=== PATIENT | male | born 1955 | race Asian ===

== ENCOUNTER 2017-04-21 23:21 | Inpatient (IN) | payer MEDICAID, BC ==
[2017-04-22] MEDS: SOD CHLORIDE 0.9% 500 ML IV (00:06)
[2017-04-22 00:34] LABS: ABNORMAL IP MESSAGE 1; HEMATOCRIT 35.9 % (42.0-52.0); HEMOGLOBIN 11.6 g/dl (14.0-18.0); MEAN CORPUSCULAR HEMOGLOBIN 27.8 pg (29.0-33.0); MEAN CORPUSCULAR HGB CONC 32.3 g/dl (32.0-37.0); MEAN CORPUSCULAR VOLUME 85.9 fl (82.0-101.0); MEAN PLATELET VOLUME 11.7 fl (7.4-10.4); PLATELET COUNT 129 10^3/UL (140-415); POSITIVE DIFF @See below; RED BLOOD COUNT 4.18 10^6/ul (4.70-6.10); RED CELL DISTRIBUTION WIDTH 14.6 % (11.5-14.5)
[2017-04-22 00:34] LABS: WHITE BLOOD COUNT 21.1 10^3/ul (4.8-10.8)
[2017-04-22 00:47] LABS: ADD MAN DIFF? YES
[2017-04-22 00:59] LABS: ALANINE AMINOTRANSFERASE 34 IU/L (13-69); ALBUMIN 2.8 g/dl (3.3-4.9); ALBUMIN/GLOBULIN RATIO 0.84; ALKALINE PHOSPHATASE 124 IU/L (42-121); ANION GAP 17 (8-16); ASPARTATE AMINO TRANSFERASE 41 IU/L (15-46); BILIRUBIN,INDIRECT 0.4 mg/dl (0-1.1); BILIRUBIN,TOTAL 0.4 mg/dl (0.2-1.3); BLOOD UREA NITROGEN 40 mg/dl (7-20); CALCIUM 8.2 mg/dl (8.4-10.2); CARBON DIOXIDE 32 mmol/L (21-31); CHLORIDE 96 mmol/L (97-110); CREATININE 2.01 mg/dl (0.61-1.24); GLUCOSE 93 mg/dl (70-220); POTASSIUM 3.1 mmol/L (3.5-5.1); SODIUM 142 mmol/L (135-144); TOTAL PROTEIN 6.1 g/dl (6.1-8.1)
[2017-04-22 01:10] LABS: TROPONIN-I 0.076 ng/ml (0.00-0.12)
[2017-04-22 01:26] LABS: B-TYPE NATRIURETIC PEPTIDE 47900 PG/ML (0-125)
[2017-04-22 01:38] LABS: BAND NEUTROPHILS #M 8.2 10^3/ul (0.0-0.6); BAND NEUTROPHILS % (M) 39 % (0-4); LYMPHOCYTES # 0.8 10^3/ul (0.8-2.9); LYMPHOCYTES #M 0.8 10^3/ul (0.8-2.9); LYMPHOCYTES % (M) 4 % (15-51); MONOCYTE # 1.5 10^3/ul (0.3-0.9); MONOCYTE #M 1.4 10^3/ul (0.3-0.9); MONOCYTES % (M) 7 % (0-11); SEG NEUT #M 12.3 10^3/ul (1.7-7.5); SEGMENTED NEUTROPHILS (M) % 50 % (39-77)
[2017-04-22 01:39] LABS: ANISOCYTOSIS 1+ (0-0); BURR CELLS 1+; OVALOCYTES 1+ (0-0)
[2017-04-22 01:44] LABS: PT RATIO 4.1
[2017-04-22] MEDS: morphine 4 MG/ML VIAL IV (01:57)
[2017-04-22 02:28] LABS: PARTIAL THROMBOPLASTIN TIME 73.5 Sec (25.0-35.0)
[2017-04-22] MEDS: SODIUM CHLORIDE 0.9% 1L BAG IV* (02:31)
[2017-04-22] MEDS: CEFEPIME 2GM/50 ML (PMX) 50 ML IVPB (02:42)
[2017-04-22] MEDS: VANCOMYCIN 1 GM (PMX) 250 ML IVPB (02:43)
[2017-04-22] MEDS ORDERED: NACL 0.9% 3 ML SYG IV (03:00)
[2017-04-22] MEDS ORDERED: NITROGLYCERIN (SL) 0.4 MG TAB SL (03:00)
[2017-04-22] MEDS ORDERED: ONDANSETRON 4 MG INJ IV (03:00)
[2017-04-22] MEDS ORDERED: ALBUTEROL/IPRATROPIUM (NEB) 3 ML AMP HHN (03:00)
[2017-04-22 03:23] LABS: INR 4.76; PROTIME 46.3 Sec (11.9-14.9); PT RATIO 3.6
[2017-04-22 03:24] LABS: PARTIAL THROMBOPLASTIN TIME 57.2 Sec (25.0-35.0)
[2017-04-22 03:26] LABS: LACTIC ACID 1.5 mmol/L (0.5-2.0)
[2017-04-22] MEDS: traMADol 50 MG TAB PO ×2 (03:58→19:29)
[2017-04-22 05:09] LABS: CREATINE KINASE 69 IU/L (23-200)
[2017-04-22 05:23] LABS: CK INDEX 2.9; TROPONIN-I 0.061 ng/ml (0.00-0.12)
[2017-04-22] MEDS: IBUPROFEN 600 MG TAB PO (06:02)
[2017-04-22 06:57] LABS: LACTIC ACID 2.3 mmol/L (0.5-2.0)
[2017-04-22] MEDS ORDERED: FUROSEMIDE 40 MG INJ IV ×2 (09:00)
[2017-04-22] MEDS ORDERED: FUROSEMIDE 40 MG TAB PO (09:00)
[2017-04-22] MEDS: FUROSEMIDE 40 MG INJ IV (09:07)
[2017-04-22] MEDS: LEVOFLOXACIN 500MG/D5W (PMX) 100 ML IVPB (09:07)
[2017-04-22] MEDS: ASPIRIN 81 MG TAB PO (09:08)
[2017-04-22 09:33] LABS: CREATINE KINASE 58 IU/L (23-200)
[2017-04-22 09:45] LABS: CK INDEX 3.3; TROPONIN-I 0.041 ng/ml (0.00-0.12)
[2017-04-22 09:48] LABS: CK-MB 1.92 ng/ml (0.0-2.4)
[2017-04-22] MEDS: morphine 2 MG INJ IV (11:34)
[2017-04-22] MEDS: RIVAROXABAN 20 MG TABLET PO (17:35)
[2017-04-22 19:59] LABS: TYPE AND SCREEN 1 1
[2017-04-23] MEDS: traMADol 50 MG TAB PO (03:03)
[2017-04-23] MEDS: predniSONE 20 MG TAB PO (03:55)
[2017-04-23] MEDS ORDERED: VANCOMYCIN IV PER PHARMACY XX (04:30)
[2017-04-23 05:10] LABS: WHITE BLOOD COUNT 18.3 10^3/ul (4.8-10.8)
[2017-04-23 05:10] LABS: ABNORMAL IP MESSAGE 1; HEMATOCRIT 35.4 % (42.0-52.0); HEMOGLOBIN 11.6 g/dl (14.0-18.0); MEAN CORPUSCULAR HEMOGLOBIN 27.5 pg (29.0-33.0); MEAN CORPUSCULAR HGB CONC 32.8 g/dl (32.0-37.0); MEAN CORPUSCULAR VOLUME 83.9 fl (82.0-101.0); MEAN PLATELET VOLUME 11.8 fl (7.4-10.4); PLATELET COUNT 98 10^3/UL (140-415); POSITIVE DIFF @See below; RED BLOOD COUNT 4.22 10^6/ul (4.70-6.10); RED CELL DISTRIBUTION WIDTH 14.6 % (11.5-14.5)
[2017-04-23 05:31] LABS: ADD MAN DIFF? YES; ALANINE AMINOTRANSFERASE 37 IU/L (13-69); ALBUMIN 2.7 g/dl (3.3-4.9); ALBUMIN/GLOBULIN RATIO 0.79; ALKALINE PHOSPHATASE 158 IU/L (42-121); ANION GAP 18 (8-16); ASPARTATE AMINO TRANSFERASE 34 IU/L (15-46); BILIRUBIN,INDIRECT 0.4 mg/dl (0-1.1); BILIRUBIN,TOTAL 0.6 mg/dl (0.2-1.3); BLOOD UREA NITROGEN 52 mg/dl (7-20); CALCIUM 8.1 mg/dl (8.4-10.2); CARBON DIOXIDE 26 mmol/L (21-31); CHLORIDE 95 mmol/L (97-110); CREATININE 1.93 mg/dl (0.61-1.24); GLUCOSE 117 mg/dl (70-220); MAGNESIUM 1.7 mg/dl (1.7-2.5); SODIUM 136 mmol/L (135-144); TOTAL PROTEIN 6.1 g/dl (6.1-8.1)
[2017-04-23 05:32] LABS: INR 2.38; PROTIME 26.6 Sec (11.9-14.9); PT RATIO 2.1
[2017-04-23 05:33] LABS: PARTIAL THROMBOPLASTIN TIME 54.4 Sec (25.0-35.0)
[2017-04-23] MEDS: VANCOMYCIN 750 MG in DEXTROSE 5% 150 ML IVPB (05:40)
[2017-04-23 07:48] LABS: ANISOCYTOSIS 1+ (0-0); BAND NEUTROPHILS #M 6.4 10^3/ul (0.0-0.6); BAND NEUTROPHILS % (M) 35 % (0-4); BURR CELLS 2+ (0-0); HYPOCHROMASIA 1+ (0-0); LYMPHOCYTES #M 0.3 10^3/ul (0.8-2.9); LYMPHOCYTES % (M) 2 % (15-51); MONOCYTE #M 0.5 10^3/ul (0.3-0.9); MONOCYTES % (M) 3 % (0-11); PLATELET ESTIMATE DECREASED; PLATELET MORPHOLOGY COMMENT @See below; POIKILOCYTOSIS 2+ (0-0); POLYCHROMASIA 1+ (0-0); SEG NEUT #M 12.2 10^3/ul (1.7-7.5); SEGMENTED NEUTROPHILS (M) % 60 % (39-77)
[2017-04-23] MEDS: ASPIRIN 81 MG TAB PO (09:48)
[2017-04-23] MEDS: FUROSEMIDE 40 MG INJ IV (09:49)
[2017-04-23 14:45] LABS: URIC ACID 12.9 mg/dl (3.1-7.9)
[2017-04-23] MEDS: POTASSIUM CHLORIDE (SR) 20 MEQ TAB PO (15:55)
[2017-04-23] MEDS: INDOMETHACIN 25 MG PO ×2 (17:35→21:17)
[2017-04-23] MEDS: COLCHICINE 0.6 MG TAB PO (17:35)
[2017-04-24] MEDS: VANCOMYCIN 750 MG in DEXTROSE 5% 150 ML IVPB (05:56)
[2017-04-24 06:05] LABS: WHITE BLOOD COUNT 25.1 10^3/ul (4.8-10.8)
[2017-04-24 06:05] LABS: ABNORMAL IP MESSAGE 1; HEMOGLOBIN 11.2 g/dl (14.0-18.0); MEAN PLATELET VOLUME 12.3 fl (7.4-10.4); PLATELET COUNT 103 10^3/UL (140-415); POSITIVE DIFF @See below; RED CELL DISTRIBUTION WIDTH 14.6 % (11.5-14.5)
[2017-04-24 06:13] LABS: ADD MAN DIFF? YES
[2017-04-24 06:50] LABS: ANION GAP 17 (8-16); BLOOD UREA NITROGEN 62 mg/dl (7-20); CALCIUM 8.6 mg/dl (8.4-10.2); CARBON DIOXIDE 26 mmol/L (21-31); CHLORIDE 96 mmol/L (97-110); CREATININE 1.93 mg/dl (0.61-1.24); GLUCOSE 125 mg/dl (70-220); POTASSIUM 3.7 mmol/L (3.5-5.1); SODIUM 135 mmol/L (135-144)
[2017-04-24 06:56] LABS: ANISOCYTOSIS 2+ (0-0); BAND NEUTROPHILS #M 4.7 10^3/ul (0.0-0.6); BAND NEUTROPHILS % (M) 19 % (0-4); LYMPHOCYTES #M 0.5 10^3/ul (0.8-2.9); LYMPHOCYTES % (M) 2 % (15-51); METAMYELOCYTES #M 0.2 10^3/ul (0.0-0.0); METAMYELOCYTES %M 1 % (0-0); MONOCYTES % (M) 4 % (0-11); PLATELET ESTIMATE DECREASED; POIKILOCYTOSIS 2+ (0-0); POLYCHROMASIA 3+ (0-0); REACTIVE LYMPHOCYTES #M 0.2 10^3/ul (0.0-0.0); REACTIVE LYMPHOCYTES% (M) 1 % (0-0); SEG NEUT #M 19.5 10^3/ul (1.7-7.5); SEGMENTED NEUTROPHILS (M) % 73 % (39-77); TARGET CELLS 1+ (0-0)
[2017-04-24] MEDS: ASPIRIN 81 MG TAB PO (08:28)
[2017-04-24] MEDS: INDOMETHACIN 25 MG PO (08:28)
[2017-04-24] MEDS: LEVOFLOXACIN 500MG/D5W (PMX) 100 ML IVPB (08:29)
[2017-04-24] MEDS: FUROSEMIDE 40 MG INJ IV (08:29)
[2017-04-24] MEDS: predniSONE 20 MG TAB PO (20:58)
[2017-04-24] MEDS: traMADol 50 MG TAB PO (20:58)
[2017-04-24] MEDS ORDERED: INDOMETHACIN 25 MG PO (21:00)
[2017-04-25] MEDS: VANCOMYCIN 750 MG in DEXTROSE 5% 150 ML IVPB (05:39)
[2017-04-25 06:00] LABS: ADD MAN DIFF? NO
[2017-04-25 06:18] LABS: ABNORMAL IP MESSAGE 1; BASOPHILS % 0.2 % (0.0-2.0); HEMATOCRIT 33.1 % (42.0-52.0); HEMOGLOBIN 11.1 g/dl (14.0-18.0); LYMPHOCYTES # 0.5 10^3/ul (0.8-2.9); LYMPHOCYTES % 2.2 % (15.0-51.0); MEAN CORPUSCULAR HEMOGLOBIN 27.8 pg (29.0-33.0); MEAN CORPUSCULAR HGB CONC 33.5 g/dl (32.0-37.0); MEAN CORPUSCULAR VOLUME 82.8 fl (82.0-101.0); MEAN PLATELET VOLUME 12.4 fl (7.4-10.4); MONOCYTE # 0.6 10^3/ul (0.3-0.9); MONOCYTES % 2.8 % (0.0-11.0); NEUTROPHIL # 20.1 10^3/ul (1.6-7.5); POSITIVE DIFF @See below; RED CELL DISTRIBUTION WIDTH 14.7 % (11.5-14.5)
[2017-04-25 06:18] LABS: WHITE BLOOD COUNT 21.6 10^3/ul (4.8-10.8)
[2017-04-25 06:22] LABS: PLATELET COUNT 97 10^3/UL (140-415)
[2017-04-25 06:35] LABS: ANION GAP 15 (8-16); BLOOD UREA NITROGEN 55 mg/dl (7-20); CALCIUM 8.3 mg/dl (8.4-10.2); CARBON DIOXIDE 28 mmol/L (21-31); CHLORIDE 98 mmol/L (97-110); CREATININE 1.68 mg/dl (0.61-1.24); GLUCOSE 116 mg/dl (70-220); POTASSIUM 3.4 mmol/L (3.5-5.1); SODIUM 138 mmol/L (135-144)
[2017-04-25] MEDS: FUROSEMIDE 40 MG INJ IV ×2 (09:58→20:46)
[2017-04-25] MEDS: ASPIRIN 81 MG TAB PO (09:58)
[2017-04-25] MEDS: POTASSIUM CHLORIDE (SR) 20 MEQ TAB PO (13:32)
[2017-04-26] MEDS: morphine 2 MG INJ IV (00:42)
[2017-04-26] MEDS: VANCOMYCIN 750 MG in DEXTROSE 5% 150 ML IVPB (05:28)
[2017-04-26] MEDS: ASPIRIN 81 MG TAB PO (07:53)
[2017-04-26] MEDS: LEVOFLOXACIN 500MG/D5W (PMX) 100 ML IVPB (07:54)
[2017-04-26] MEDS: FUROSEMIDE 40 MG INJ IV (07:54)
[2017-04-26] MEDS: traMADol 50 MG TAB PO ×2 (07:54→13:56)
[2017-04-26 14:16] LABS: ADD MAN DIFF? NO
[2017-04-26 14:21] LABS: WHITE BLOOD COUNT 16.8 10^3/ul (4.8-10.8)
[2017-04-26 14:21] LABS: BASOPHILS % 0.2 % (0.0-2.0); EOSINOPHILS % 0.2 % (0.0-7.0); HEMATOCRIT 32.8 % (42.0-52.0); HEMOGLOBIN 10.8 g/dl (14.0-18.0); LYMPHOCYTES # 0.8 10^3/ul (0.8-2.9); LYMPHOCYTES % 4.7 % (15.0-51.0); MEAN CORPUSCULAR HEMOGLOBIN 27.3 pg (29.0-33.0); MEAN CORPUSCULAR HGB CONC 32.9 g/dl (32.0-37.0); MEAN PLATELET VOLUME 12.2 fl (7.4-10.4); MONOCYTE # 0.8 10^3/ul (0.3-0.9); MONOCYTES % 4.8 % (0.0-11.0); NEUTROPHILS % 89.3 % (39.0-77.0); PLATELET COUNT 141 10^3/UL (140-415); RED BLOOD COUNT 3.95 10^6/ul (4.70-6.10); RED CELL DISTRIBUTION WIDTH 14.9 % (11.5-14.5)
[2017-04-26 14:36] LABS: PROTIME 15.4 Sec (11.9-14.9); PT RATIO 1.2
[2017-04-26 14:41] LABS: ANION GAP 13 (8-16)
[2017-04-26 14:51] LABS: BLOOD UREA NITROGEN 56 mg/dl (7-20); CALCIUM 8.4 mg/dl (8.4-10.2); CARBON DIOXIDE 29 mmol/L (21-31); CHLORIDE 94 mmol/L (97-110); CREATININE 1.42 mg/dl (0.61-1.24); GLUCOSE 143 mg/dl (70-220); POTASSIUM 3.3 mmol/L (3.5-5.1); SODIUM 133 mmol/L (135-144)
[2017-04-26] MEDS: COLCHICINE 0.6 MG TAB PO (15:09)
[2017-04-26] MEDS: predniSONE 20 MG TAB PO (15:09)
[2017-04-27] MEDS: FUROSEMIDE 40 MG TAB PO (06:33)
[2017-04-27 07:31] LABS: ADD MAN DIFF? NO
[2017-04-27 07:39] LABS: WHITE BLOOD COUNT 18.2 10^3/ul (4.8-10.8)
[2017-04-27 07:39] LABS: BASOPHILS % 0.2 % (0.0-2.0); HEMOGLOBIN 10.1 g/dl (14.0-18.0); LYMPHOCYTES # 0.8 10^3/ul (0.8-2.9); LYMPHOCYTES % 4.3 % (15.0-51.0); MEAN CORPUSCULAR HEMOGLOBIN 26.9 pg (29.0-33.0); MEAN CORPUSCULAR HGB CONC 32.6 g/dl (32.0-37.0); MEAN CORPUSCULAR VOLUME 82.7 fl (82.0-101.0); MEAN PLATELET VOLUME 11.7 fl (7.4-10.4); MONOCYTE # 0.8 10^3/ul (0.3-0.9); MONOCYTES % 4.4 % (0.0-11.0); NEUTROPHIL # 16.3 10^3/ul (1.6-7.5); NEUTROPHILS % 89.6 % (39.0-77.0); PLATELET COUNT 170 10^3/UL (140-415); RED BLOOD COUNT 3.75 10^6/ul (4.70-6.10); RED CELL DISTRIBUTION WIDTH 14.9 % (11.5-14.5)
[2017-04-27 07:50] LABS: ANION GAP 11 (8-16); BLOOD UREA NITROGEN 54 mg/dl (7-20); CALCIUM 8.6 mg/dl (8.4-10.2); CARBON DIOXIDE 33 mmol/L (21-31); CHLORIDE 97 mmol/L (97-110); CREATININE 1.42 mg/dl (0.61-1.24); GLUCOSE 115 mg/dl (70-220); POTASSIUM 3.5 mmol/L (3.5-5.1); SODIUM 137 mmol/L (135-144)
[2017-04-27] MEDS: ASPIRIN 81 MG TAB PO (09:31)
[2017-04-27] MEDS: predniSONE 20 MG TAB PO (09:31)
[2017-04-27] MEDS: COLCHICINE 0.6 MG TAB PO (09:32)
[2017-04-27] MEDS: ALLOPURINOL 100 MG TAB PO (15:42)
[2017-04-27] MEDS: SILDENAFIL 20 MG TAB PO (20:15)
[2017-04-28] MEDS: AL HYDROX/MG HYDROX/SIMETH 30 ML CUP PO (01:59)
[2017-04-28] MEDS: traMADol 50 MG TAB PO (04:17)
[2017-04-28] MEDS: FUROSEMIDE 40 MG TAB PO (06:03)
[2017-04-28] MEDS: ALLOPURINOL 100 MG TAB PO (08:17)
[2017-04-28] MEDS: COLCHICINE 0.6 MG TAB PO (08:17)
[2017-04-28] MEDS: predniSONE 20 MG TAB PO (08:17)
[2017-04-28] MEDS: SILDENAFIL 20 MG TAB PO ×3 (08:17→20:40)
[2017-04-28] MEDS: ASPIRIN 81 MG TAB PO (08:18)
[2017-04-28] MEDS ORDERED: VANCOMYCIN IV PER PHARMACY XX (09:30)
[2017-04-28] MEDS: VANCOMYCIN 1 GM 250 ML IVPB (12:07)
[2017-04-28] MEDS: VANCOMYCIN 500MG/NS (PMX) 100 ML IVPB (22:45)
[2017-04-29] MEDS: traMADol 50 MG TAB PO (02:05)
[2017-04-29] MEDS: FUROSEMIDE 40 MG TAB PO (02:58)
[2017-04-29] MEDS: predniSONE 20 MG TAB PO (08:53)
[2017-04-29] MEDS: ASPIRIN 81 MG TAB PO (08:53)
[2017-04-29] MEDS: ALLOPURINOL 100 MG TAB PO (08:53)
[2017-04-29] MEDS: SILDENAFIL 20 MG TAB PO ×3 (08:53→21:27)
[2017-04-29] MEDS: COLCHICINE 0.6 MG TAB PO (08:53)
[2017-04-29 09:28] LABS: CREATININE 1.37 mg/dl (0.61-1.24)
[2017-04-29 09:28] LABS: BLOOD UREA NITROGEN 53 mg/dl (7-20)
[2017-04-29] MEDS: VANCOMYCIN 500MG/NS (PMX) 100 ML IVPB ×2 (10:27→23:06)
[2017-04-29 17:23] LABS: ADD UMIC YES; UR ASCORBIC ACID NEGATIVE (NEGATIVE); UR BILIRUBIN (Dip) NEGATIVE (NEGATIVE); UR BLOOD (Dip) NEGATIVE (NEGATIVE); UR CLARITY CLEAR (CLEAR); UR COLOR YELLOW (YELLOW); UR GLUCOSE (Dip) 1+ mg/dL (NEGATIVE); UR KETONES (Dip) NEGATIVE (NEGATIVE); UR LEUKOCYTE ESTERASE (Dip) NEGATIVE Leu/ul (NEGATIVE); UR NITRITE (Dip) NEGATIVE (NEGATIVE); UR RBC 0 /HPF (0-5); UR SPECIFIC GRAVITY (Dip) 1.013 (1.003-1.030); UR TOTAL PROTEIN (Dip) 1+ mg/dl (NEGATIVE); UR UROBILINOGEN (Dip) NEGATIVE (NEGATIVE); UR WBC 0 /HPF (0-5)
[2017-04-29 17:38] LABS: SODIUM,URINE RANDOM 67 mmol/L (30-90)
[2017-04-29 17:38] LABS: CREATININE,URINE RANDOM 32.66 mg/dl (20-370)
[2017-04-29 22:50] LABS: VANCOMYCIN,TROUGH 14.9 ug/ml (10.0-20.0)
[2017-04-30] MEDS: traMADol 50 MG TAB PO (07:43)
[2017-04-30] MEDS: FUROSEMIDE 40 MG TAB PO (07:44)
[2017-04-30] MEDS: ASPIRIN 81 MG TAB PO (08:58)
[2017-04-30] MEDS: SILDENAFIL 20 MG TAB PO ×3 (08:58→20:56)
[2017-04-30] MEDS: ALLOPURINOL 100 MG TAB PO (08:59)
[2017-04-30] MEDS: COLCHICINE 0.6 MG TAB PO (08:59)
[2017-04-30] MEDS: predniSONE 20 MG TAB PO (10:28)
[2017-04-30] MEDS: VANCOMYCIN 500MG/NS (PMX) 100 ML IVPB ×2 (10:28→23:37)
[2017-04-30 10:39] LABS: ADD MAN DIFF? NO
[2017-04-30 10:43] LABS: ABNORMAL IP MESSAGE 1; BASOPHILS % 0.1 % (0.0-2.0); EOSINOPHILS % 0.1 % (0.0-7.0); HEMATOCRIT 24.9 % (42.0-52.0); LYMPHOCYTES % 6.6 % (15.0-51.0); MEAN CORPUSCULAR HEMOGLOBIN 27.3 pg (29.0-33.0); MEAN CORPUSCULAR HGB CONC 32.1 g/dl (32.0-37.0); MEAN PLATELET VOLUME 10.9 fl (7.4-10.4); MONOCYTE # 1.2 10^3/ul (0.3-0.9); MONOCYTES % 8.3 % (0.0-11.0); NEUTROPHIL # 11.7 10^3/ul (1.6-7.5); NEUTROPHILS % 79.3 % (39.0-77.0); PLATELET COUNT 250 10^3/UL (140-415); POSITIVE DIFF @See below; RED BLOOD COUNT 2.93 10^6/ul (4.70-6.10); RED CELL DISTRIBUTION WIDTH 15.5 % (11.5-14.5)
[2017-04-30 10:43] LABS: WHITE BLOOD COUNT 14.7 10^3/ul (4.8-10.8)
[2017-04-30 11:04] LABS: ANION GAP 11 (8-16); BLOOD UREA NITROGEN 50 mg/dl (7-20); CALCIUM 7.9 mg/dl (8.4-10.2); CARBON DIOXIDE 32 mmol/L (21-31); CHLORIDE 97 mmol/L (97-110); CREATININE 1.23 mg/dl (0.61-1.24); GLUCOSE 197 mg/dl (70-220); SODIUM 136 mmol/L (135-144)
[2017-04-30 14:17] LABS: CREATININE, RANDOM URINE 41 mg/dL (20-370); MICROALBUMIN 12.3 mg/dL; MICROALBUMIN/CREATININE RATIO 300 (<30)
[2017-05-01] MEDS: traMADol 50 MG TAB PO (03:27)
[2017-05-01] MEDS: FUROSEMIDE 40 MG TAB PO (07:12)
[2017-05-01 07:39] LABS: WHITE BLOOD COUNT 14.8 10^3/ul (4.8-10.8)
[2017-05-01 07:39] LABS: ABNORMAL IP MESSAGE 1; HEMATOCRIT 21.3 % (42.0-52.0); MEAN CORPUSCULAR HEMOGLOBIN 27.4 pg (29.0-33.0); MEAN CORPUSCULAR HGB CONC 32.4 g/dl (32.0-37.0); MEAN CORPUSCULAR VOLUME 84.5 fl (82.0-101.0); MEAN PLATELET VOLUME 10.4 fl (7.4-10.4); PLATELET COUNT 244 10^3/UL (140-415); POSITIVE DIFF @See below; RED BLOOD COUNT 2.52 10^6/ul (4.70-6.10); RED CELL DISTRIBUTION WIDTH 15.9 % (11.5-14.5)
[2017-05-01 07:50] LABS: ADD MAN DIFF? YES; HEMOGLOBIN 6.9 g/dl (14.0-18.0)
[2017-05-01] MEDS: predniSONE 20 MG TAB PO (08:18)
[2017-05-01] MEDS: ASPIRIN 81 MG TAB PO (08:18)
[2017-05-01] MEDS: ALLOPURINOL 100 MG TAB PO (08:18)
[2017-05-01] MEDS: SILDENAFIL 20 MG TAB PO ×3 (08:19→20:12)
[2017-05-01] MEDS: COLCHICINE 0.6 MG TAB PO (08:19)
[2017-05-01] MEDS: BALSAM PERU/CASTOR OIL 60 GM TUBE TOP (08:20)
[2017-05-01 08:32] LABS: ANION GAP 8 (8-16); BLOOD UREA NITROGEN 49 mg/dl (7-20); CALCIUM 8.2 mg/dl (8.4-10.2); CARBON DIOXIDE 32 mmol/L (21-31); CHLORIDE 100 mmol/L (97-110); CREATININE 1.23 mg/dl (0.61-1.24); GLUCOSE 152 mg/dl (70-220); POTASSIUM 4.1 mmol/L (3.5-5.1); SODIUM 136 mmol/L (135-144)
[2017-05-01] MEDS: ACETAMINOPHEN 325 MG TAB PO (09:08)
[2017-05-01 09:21] LABS: BAND NEUTROPHILS #M 0.7 10^3/ul (0.0-0.6); BAND NEUTROPHILS % (M) 5 % (0-4); HYPOCHROMASIA 2+ (0-0); LYMPHOCYTES #M 0.7 10^3/ul (0.8-2.9); LYMPHOCYTES % (M) 5 % (15-51); METAMYELOCYTES #M 0.1 10^3/ul (0.0-0.0); METAMYELOCYTES %M 1 % (0-0); MONOCYTE #M 1.4 10^3/ul (0.3-0.9); MONOCYTES % (M) 10 % (0-11); MYELOCYTES #M 0.1 10^3/ul (0.0-0.0); MYELOCYTES % (M) 1 % (0-0); PLATELET ESTIMATE NORMAL; POIKILOCYTOSIS 1+ (0-0); POLYCHROMASIA 1+ (0-0); REACTIVE LYMPHOCYTES #M 0.1 10^3/ul (0.0-0.0); REACTIVE LYMPHOCYTES% (M) 1 % (0-0); SEG NEUT #M 11.5 10^3/ul (1.7-7.5); SEGMENTED NEUTROPHILS (M) % 77 % (39-77); SMUDGE%M 1 % (0-0); TARGET CELLS 1+ (0-0)
[2017-05-01] MEDS ORDERED: BALSAM PERU/CASTOR OIL 60 GM TUBE TOP (09:30)
[2017-05-01] MEDS: SOD CHLORIDE 0.9% 250 ML IV* (09:56)
[2017-05-01] MEDS: VANCOMYCIN 500MG/NS (PMX) 100 ML IVPB (11:04)
[2017-05-01] MEDS: LISINOPRIL 5 MG TAB PO (11:06)
[2017-05-01 12:42] LABS: IMMEDIATE SPIN CROSSMATCH 1 2
[2017-05-01] MEDS: FUROSEMIDE 40 MG INJ IV ×2 (15:32→20:10)
[2017-05-01] MEDS: PANTOPRAZOLE 40 MG INJ IV (17:28)
[2017-05-01 20:52] LABS: HEMATOCRIT 28.6 % (42.0-52.0); HEMOGLOBIN 9.4 g/dl (14.0-18.0)
[2017-05-02] MEDS: traMADol 50 MG TAB PO ×2 (04:45→11:36)
[2017-05-02] MEDS: FUROSEMIDE 40 MG TAB PO (04:45)
[2017-05-02] MEDS: PANTOPRAZOLE 40 MG INJ IV ×2 (04:49→17:51)
[2017-05-02] MEDS: ACETAMINOPHEN 325 MG TAB PO (07:25)
[2017-05-02] MEDS: predniSONE 10 MG TAB PO (08:11)
[2017-05-02] MEDS: ALLOPURINOL 100 MG TAB PO (08:11)
[2017-05-02] MEDS: COLCHICINE 0.6 MG TAB PO (08:11)
[2017-05-02] MEDS: SILDENAFIL 20 MG TAB PO ×3 (08:12→22:10)
[2017-05-02] MEDS: LISINOPRIL 5 MG TAB PO (08:12)
[2017-05-02] MEDS: BALSAM PERU/CASTOR OIL 60 GM TUBE TOP (09:39)
[2017-05-02 09:59] LABS: ADD MAN DIFF? NO
[2017-05-02 10:11] LABS: WHITE BLOOD COUNT 14.4 10^3/ul (4.8-10.8)
[2017-05-02 10:11] LABS: BASOPHILS % 0.1 % (0.0-2.0); EOSINOPHILS # 0.1 10^3/ul (0.0-0.5); EOSINOPHILS % 0.4 % (0.0-7.0); HEMATOCRIT 28.3 % (42.0-52.0); HEMOGLOBIN 9.1 g/dl (14.0-18.0); LYMPHOCYTES # 0.8 10^3/ul (0.8-2.9); LYMPHOCYTES % 5.7 % (15.0-51.0); MEAN CORPUSCULAR HEMOGLOBIN 27.5 pg (29.0-33.0); MEAN CORPUSCULAR HGB CONC 32.2 g/dl (32.0-37.0); MEAN CORPUSCULAR VOLUME 85.5 fl (82.0-101.0); MEAN PLATELET VOLUME 10.2 fl (7.4-10.4); MONOCYTE # 0.9 10^3/ul (0.3-0.9); MONOCYTES % 6.4 % (0.0-11.0); NEUTROPHIL # 12.2 10^3/ul (1.6-7.5); NEUTROPHILS % 84.7 % (39.0-77.0); PLATELET COUNT 286 10^3/UL (140-415); RED BLOOD COUNT 3.31 10^6/ul (4.70-6.10); RED CELL DISTRIBUTION WIDTH 15.3 % (11.5-14.5)
[2017-05-02 10:47] LABS: ANION GAP 14 (8-16); BLOOD UREA NITROGEN 47 mg/dl (7-20); CALCIUM 7.7 mg/dl (8.4-10.2); CARBON DIOXIDE 29 mmol/L (21-31); CHLORIDE 98 mmol/L (97-110); CREATININE 1.43 mg/dl (0.61-1.24); GLUCOSE 170 mg/dl (70-220); POTASSIUM 3.9 mmol/L (3.5-5.1); SODIUM 137 mmol/L (135-144)
[2017-05-02 13:05] LABS: OCCULT BLOOD STOOL POSITIVE (NEGATIVE)
[2017-05-02] MEDS: BISACODYL (EC) 5 MG TAB PO (14:48)
[2017-05-02] MEDS: MAGNESIUM CITRATE 300 ML BTL PO (17:30)
[2017-05-02] MEDS: POLYETHYLENE GLYCOL 3350 119 GM POWDER PO (17:51)
[2017-05-03] MEDS: traMADol 50 MG TAB PO ×3 (02:54→21:49)
[2017-05-03] MEDS: PANTOPRAZOLE 40 MG INJ IV ×2 (05:18→17:56)
[2017-05-03] MEDS: ACETAMINOPHEN 325 MG TAB PO ×2 (05:22→12:13)
[2017-05-03] MEDS: FUROSEMIDE 40 MG TAB PO (05:22)
[2017-05-03] MEDS: POLYETHYLENE GLYCOL 3350 119 GM POWDER PO ×2 (06:07→06:10)
[2017-05-03 07:48] LABS: ADD MAN DIFF? NO
[2017-05-03 07:51] LABS: WHITE BLOOD COUNT 10.4 10^3/ul (4.8-10.8)
[2017-05-03 07:51] LABS: BASOPHILS % 0.1 % (0.0-2.0); EOSINOPHILS # 0.1 10^3/ul (0.0-0.5); EOSINOPHILS % 0.6 % (0.0-7.0); HEMATOCRIT 27.4 % (42.0-52.0); LYMPHOCYTES # 0.9 10^3/ul (0.8-2.9); LYMPHOCYTES % 8.4 % (15.0-51.0); MEAN CORPUSCULAR HGB CONC 32.8 g/dl (32.0-37.0); MEAN CORPUSCULAR VOLUME 85.1 fl (82.0-101.0); MEAN PLATELET VOLUME 10.2 fl (7.4-10.4); MONOCYTE # 0.9 10^3/ul (0.3-0.9); MONOCYTES % 8.9 % (0.0-11.0); NEUTROPHIL # 8.4 10^3/ul (1.6-7.5); NEUTROPHILS % 80.3 % (39.0-77.0); PLATELET COUNT 308 10^3/UL (140-415); RED BLOOD COUNT 3.22 10^6/ul (4.70-6.10); RED CELL DISTRIBUTION WIDTH 15.7 % (11.5-14.5)
[2017-05-03 08:17] LABS: ANION GAP 10 (8-16); BLOOD UREA NITROGEN 42 mg/dl (7-20); CARBON DIOXIDE 31 mmol/L (21-31); CHLORIDE 98 mmol/L (97-110); CREATININE 1.17 mg/dl (0.61-1.24); GLUCOSE 69 mg/dl (70-220); POTASSIUM 4.5 mmol/L (3.5-5.1); SODIUM 134 mmol/L (135-144)
[2017-05-03 08:18] LABS: URIC ACID 7.8 mg/dl (3.1-7.9)
[2017-05-03] MEDS: COLCHICINE 0.6 MG TAB PO (09:34)
[2017-05-03] MEDS: ALLOPURINOL 100 MG TAB PO (09:34)
[2017-05-03] MEDS: BISACODYL (EC) 5 MG TAB PO (09:34)
[2017-05-03] MEDS: LISINOPRIL 5 MG TAB PO (09:35)
[2017-05-03] MEDS: SILDENAFIL 20 MG TAB PO ×3 (09:35→21:48)
[2017-05-03] MEDS: predniSONE 10 MG TAB PO (09:35)
[2017-05-03] MEDS: BALSAM PERU/CASTOR OIL 60 GM TUBE TOP (09:36)
[2017-05-03] MEDS ORDERED: ONDANSETRON 4 MG INJ IV (16:00)
[2017-05-03] MEDS: MIDAZOLAM 1 MG/ML 2 ML INJ (16:03)
[2017-05-03] MEDS: ETOMIDATE 20 MG INJ ×2 (16:03→16:04)
[2017-05-03] MEDS: LIDOCAINE 4% SOLUTION 50 ML BTL (16:03)
[2017-05-03] MEDS: PHENYLephrine (100 MCG/ML) 5ML SYG (16:08)
[2017-05-04] MEDS: traMADol 50 MG TAB PO ×3 (03:31→19:30)
[2017-05-04] MEDS: FUROSEMIDE 40 MG TAB PO (05:58)
[2017-05-04] MEDS: PANTOPRAZOLE 40 MG INJ IV (05:58)
[2017-05-04] MEDS: ACETAMINOPHEN 325 MG TAB PO ×2 (07:44→22:44)
[2017-05-04] MEDS: SILDENAFIL 20 MG TAB PO ×3 (08:53→20:18)
[2017-05-04] MEDS: LISINOPRIL 5 MG TAB PO (08:53)
[2017-05-04] MEDS: predniSONE 10 MG TAB PO (08:53)
[2017-05-04] MEDS: ALLOPURINOL 100 MG TAB PO (08:54)
[2017-05-04] MEDS: COLCHICINE 0.6 MG TAB PO (08:54)
[2017-05-04] MEDS: BALSAM PERU/CASTOR OIL 60 GM TUBE TOP (08:56)
[2017-05-04 09:34] LABS: ADD MAN DIFF? NO
[2017-05-04 09:37] LABS: BASOPHILS % 0.2 % (0.0-2.0); EOSINOPHILS % 0.3 % (0.0-7.0); HEMATOCRIT 29.6 % (42.0-52.0); HEMOGLOBIN 9.7 g/dl (14.0-18.0); LYMPHOCYTES % 11.3 % (15.0-51.0); MEAN CORPUSCULAR HGB CONC 32.8 g/dl (32.0-37.0); MEAN CORPUSCULAR VOLUME 85.5 fl (82.0-101.0); MEAN PLATELET VOLUME 9.6 fl (7.4-10.4); MONOCYTE # 0.8 10^3/ul (0.3-0.9); MONOCYTES % 9.3 % (0.0-11.0); NEUTROPHIL # 6.7 10^3/ul (1.6-7.5); NEUTROPHILS % 77.4 % (39.0-77.0); PLATELET COUNT 363 10^3/UL (140-415); RED BLOOD COUNT 3.46 10^6/ul (4.70-6.10); RED CELL DISTRIBUTION WIDTH 16.2 % (11.5-14.5)
[2017-05-04 09:37] LABS: WHITE BLOOD COUNT 8.7 10^3/ul (4.8-10.8)
[2017-05-04 10:00] LABS: ANION GAP 12 (8-16); BLOOD UREA NITROGEN 48 mg/dl (7-20); CALCIUM 8.3 mg/dl (8.4-10.2); CARBON DIOXIDE 29 mmol/L (21-31); CHLORIDE 98 mmol/L (97-110); CREATININE 1.53 mg/dl (0.61-1.24); GLUCOSE 132 mg/dl (70-220); MAGNESIUM 2.4 mg/dl (1.7-2.5); PHOSPHORUS 4.1 mg/dl (2.5-4.9); SODIUM 135 mmol/L (135-144)
[2017-05-04] MEDS: PANTOPRAZOLE (EC) 40 MG TAB PO (17:40)
[2017-05-05] MEDS: PANTOPRAZOLE (EC) 40 MG TAB PO ×2 (05:34→17:17)
[2017-05-05] MEDS: FUROSEMIDE 40 MG TAB PO (05:35)
[2017-05-05] MEDS: ACETAMINOPHEN 325 MG TAB PO (07:14)
[2017-05-05] MEDS: LISINOPRIL 5 MG TAB PO (08:12)
[2017-05-05] MEDS: COLCHICINE 0.6 MG TAB PO (08:12)
[2017-05-05] MEDS: ALLOPURINOL 100 MG TAB PO (08:13)
[2017-05-05] MEDS: predniSONE 10 MG TAB PO (08:13)
[2017-05-05] MEDS: SILDENAFIL 20 MG TAB PO ×3 (08:13→20:33)
[2017-05-05] MEDS: BALSAM PERU/CASTOR OIL 60 GM TUBE TOP (08:14)
[2017-05-05] MEDS: traMADol 50 MG TAB PO (20:35)
[2017-05-06] MEDS: traMADol 50 MG TAB PO ×3 (02:14→16:02)
[2017-05-06] MEDS: PANTOPRAZOLE (EC) 40 MG TAB PO ×2 (05:54→16:45)
[2017-05-06] MEDS: FUROSEMIDE 40 MG TAB PO (05:54)
[2017-05-06] MEDS: ALLOPURINOL 100 MG TAB PO (07:49)
[2017-05-06] MEDS: COLCHICINE 0.6 MG TAB PO (07:49)
[2017-05-06] MEDS: predniSONE 10 MG TAB PO (07:49)
[2017-05-06] MEDS: LISINOPRIL 5 MG TAB PO (07:50)
[2017-05-06] MEDS: BALSAM PERU/CASTOR OIL 60 GM TUBE TOP (07:50)
[2017-05-06 08:34] LABS: ANION GAP 12 (8-16); BLOOD UREA NITROGEN 43 mg/dl (7-20); CALCIUM 8.8 mg/dl (8.4-10.2); CARBON DIOXIDE 29 mmol/L (21-31); CHLORIDE 101 mmol/L (97-110); CREATININE 1.51 mg/dl (0.61-1.24); GLUCOSE 81 mg/dl (70-220); MAGNESIUM 2.2 mg/dl (1.7-2.5); PHOSPHORUS 3.2 mg/dl (2.5-4.9); POTASSIUM 4.3 mmol/L (3.5-5.1); SODIUM 138 mmol/L (135-144)
[2017-05-06] MEDS: FLUCONAZOLE 200 MG TAB PO (09:58)
[2017-05-06] MEDS: SILDENAFIL 20 MG TAB PO ×2 (09:58→13:55)
[2017-05-07] MEDS ORDERED: FLUCONAZOLE 200 MG TAB PO (09:00)
== END 2017-05-06 18:11 | disposition home or self-care (01) | DRG 150 ==
LOC: E/R 23:21 → MS4 04-25 16:18 → MS3 04-22 02:05
PROC: 0DB68ZX Excision of Stomach, Via Natural or Artificial Opening Endoscopic, Diagnostic (ICD-10-PCS; principal; 2017-05-03 15:00)
PROC: 0DB58ZX Excision of Esophagus, Via Natural or Artificial Opening Endoscopic, Diagnostic (ICD-10-PCS; 2017-05-03 15:00)
PROC: 0DJD8ZZ Inspection of Lower Intestinal Tract, Via Natural or Artificial Opening Endoscopic (ICD-10-PCS; 2017-05-03 15:00)
PROC: 30233K1 Transfusion of Nonautologous Frozen Plasma into Peripheral Vein, Percutaneous Approach (ICD-10-PCS; 2017-05-03 15:00)
PROC: 30233N1 Transfusion of Nonautologous Red Blood Cells into Peripheral Vein, Percutaneous Approach (ICD-10-PCS; 2017-05-03 15:00)
DX: R04.0 Epistaxis (principal); I50.23 Acute on chronic systolic (congestive) heart failure; R64 Cachexia; N17.9 Acute kidney failure, unspecified; D62 Acute posthemorrhagic anemia; B37.81 Candidal esophagitis; I42.9 Cardiomyopathy, unspecified; I13.0 Hypertensive heart and chronic kidney disease with heart failure and stage 1 through stage 4 chronic kidney disease, or unspecified chronic kidney disease; K62.5 Hemorrhage of anus and rectum; Z68.1 Body mass index [BMI] 19.9 or less, adult; L03.115 Cellulitis of right lower limb; M10.9 Gout, unspecified; I50.82 Biventricular heart failure; I25.5 Ischemic cardiomyopathy; Z95.0 Presence of cardiac pacemaker; K29.50 Unspecified chronic gastritis without bleeding; N18.9 Chronic kidney disease, unspecified; K29.70 Gastritis, unspecified, without bleeding; T45.515A Adverse effect of anticoagulants, initial encounter; Y92.018 Other place in single-family (private) house as the place of occurrence of the external cause; E88.09 Other disorders of plasma-protein metabolism, not elsewhere classified; E87.6 Hypokalemia; E83.9 Disorder of mineral metabolism, unspecified; I08.1 Rheumatic disorders of both mitral and tricuspid valves; K25.9 Gastric ulcer, unspecified as acute or chronic, without hemorrhage or perforation; K64.8 Other hemorrhoids; I87.8 Other specified disorders of veins; I45.10 Unspecified right bundle-branch block; D72.829 Elevated white blood cell count, unspecified; Z86.718 Personal history of other venous thrombosis and embolism
CPT/HCPCS: 36415; 36430; 71045; 73110-RT; 73130-RT; 76775; 80048; 80053; 80202; 81001; 81003; 82043; 82270; 82550; 82553; 82565; 83605; 83735; 83880; 84100; 84155; 84300; 84484; 84520; 84560; 85014; 85018; 85025; 85610; 85730; 86850; 86900; 86901; 86920; 87040; 87400; 88305; 88312; 88313; 93005; 93308; 93922; 93970; 96374; 96375; 97163; 99291-25

== ENCOUNTER 2017-05-22 10:50 | Inpatient (IN) | payer MEDICAID ==
[2017-05-22 14:37] LABS: ADD MAN DIFF? NO
[2017-05-22 14:41] LABS: BASOPHILS % 0.1 % (0.0-2.0); EOSINOPHILS # 0.1 10^3/ul (0.0-0.5); EOSINOPHILS % 0.8 % (0.0-7.0); HEMATOCRIT 29.7 % (42.0-52.0); HEMOGLOBIN 9.4 g/dl (14.0-18.0); LYMPHOCYTES # 0.9 10^3/ul (0.8-2.9); LYMPHOCYTES % 10.6 % (15.0-51.0); MEAN CORPUSCULAR HEMOGLOBIN 27.2 pg (29.0-33.0); MEAN CORPUSCULAR HGB CONC 31.6 g/dl (32.0-37.0); MEAN CORPUSCULAR VOLUME 86.1 fl (82.0-101.0); MEAN PLATELET VOLUME 8.8 fl (7.4-10.4); MONOCYTE # 0.6 10^3/ul (0.3-0.9); MONOCYTES % 7.1 % (0.0-11.0); NEUTROPHIL # 6.7 10^3/ul (1.6-7.5); PLATELET COUNT 251 10^3/UL (140-415); RED BLOOD COUNT 3.45 10^6/ul (4.70-6.10); RED CELL DISTRIBUTION WIDTH 15.6 % (11.5-14.5)
[2017-05-22 14:41] LABS: WHITE BLOOD COUNT 8.3 10^3/ul (4.8-10.8)
[2017-05-22] MEDS: CEFAZOLIN 1 GM/50 ML (PMX) 50 ML IVPB (14:47)
[2017-05-22 15:04] LABS: INR 1.12; PROTIME 14.6 Sec (11.9-14.9); PT RATIO 1.1
[2017-05-22 15:05] LABS: ANION GAP 12 (8-16); BLOOD UREA NITROGEN 19 mg/dl (7-20); CALCIUM 8.9 mg/dl (8.4-10.2); CARBON DIOXIDE 28 mmol/L (21-31); CHLORIDE 104 mmol/L (97-110); CREATININE 1.04 mg/dl (0.61-1.24); GLUCOSE 87 mg/dl (70-220); PARTIAL THROMBOPLASTIN TIME 56.9 Sec (25.0-35.0); POTASSIUM 3.3 mmol/L (3.5-5.1); SODIUM 141 mmol/L (135-144)
[2017-05-22] MEDS: HYDROCODONE/APAP (10/325) TAB PO (16:19)
[2017-05-22] MEDS: ONDANSETRON (ODT) 4 MG TAB ODT (16:19)
[2017-05-22] MEDS: POTASSIUM CHLORIDE (SR) 20 MEQ TAB PO (17:41)
[2017-05-22] MEDS ORDERED: NACL 0.9% 3 ML SYG IV (20:00)
[2017-05-22] MEDS ORDERED: ONDANSETRON 4 MG TAB PO (20:00)
[2017-05-22] MEDS ORDERED: ACETAMINOPHEN 325 MG TAB PO (20:00)
[2017-05-22] MEDS: HEPARIN 5,000 UNIT/0.5 ML VIAL SC (22:24)
[2017-05-22] MEDS: SOD CHLORIDE 0.9% 1,000 ML IV (22:27)
[2017-05-22] MEDS: predniSONE 20 MG TAB PO (22:27)
[2017-05-22] MEDS: PANTOPRAZOLE (EC) 40 MG TAB PO (22:27)
[2017-05-22 22:40] LABS: URIC ACID 8.6 mg/dl (3.1-7.9)
[2017-05-22 23:01] LABS: C-REACTIVE PROTEIN 13.7 mg/dl (0.0-0.9)
[2017-05-22 23:21] LABS: ERYTHROCYTE SEDIMENTATION RATE 130 mm/Hr (0-20)
[2017-05-23] MEDS: PANTOPRAZOLE (EC) 40 MG TAB PO (05:32)
[2017-05-23 05:50] LABS: ADD MAN DIFF? NO
[2017-05-23 05:58] LABS: WHITE BLOOD COUNT 8.8 10^3/ul (4.8-10.8)
[2017-05-23 05:58] LABS: ABNORMAL IP MESSAGE 1; BASOPHILS % 0.1 % (0.0-2.0); HEMATOCRIT 26.9 % (42.0-52.0); HEMOGLOBIN 8.4 g/dl (14.0-18.0); LYMPHOCYTES # 0.5 10^3/ul (0.8-2.9); LYMPHOCYTES % 5.3 % (15.0-51.0); MEAN CORPUSCULAR HEMOGLOBIN 27.1 pg (29.0-33.0); MEAN CORPUSCULAR HGB CONC 31.2 g/dl (32.0-37.0); MEAN CORPUSCULAR VOLUME 86.8 fl (82.0-101.0); MEAN PLATELET VOLUME 9.2 fl (7.4-10.4); MONOCYTE # 0.1 10^3/ul (0.3-0.9); MONOCYTES % 1.1 % (0.0-11.0); NEUTROPHIL # 8.1 10^3/ul (1.6-7.5); PLATELET COUNT 231 10^3/UL (140-415); POSITIVE DIFF @See below; RED CELL DISTRIBUTION WIDTH 15.7 % (11.5-14.5)
[2017-05-23] MEDS ORDERED: PANTOPRAZOLE (EC) 40 MG TAB PO (06:00)
[2017-05-23 06:36] LABS: ALANINE AMINOTRANSFERASE 35 IU/L (13-69); ALBUMIN 3.2 g/dl (3.3-4.9); ALKALINE PHOSPHATASE 239 IU/L (42-121); ANION GAP 11 (8-16); ASPARTATE AMINO TRANSFERASE 42 IU/L (15-46); BILIRUBIN,INDIRECT 0.1 mg/dl (0-1.1); BILIRUBIN,TOTAL 0.1 mg/dl (0.2-1.3); BLOOD UREA NITROGEN 32 mg/dl (7-20); CALCIUM 8.8 mg/dl (8.4-10.2); CARBON DIOXIDE 25 mmol/L (21-31); CHLORIDE 108 mmol/L (97-110); CREATININE 1.28 mg/dl (0.61-1.24); GLUCOSE 155 mg/dl (70-220); POTASSIUM 4.3 mmol/L (3.5-5.1); SODIUM 140 mmol/L (135-144); TOTAL PROTEIN 7.2 g/dl (6.1-8.1)
[2017-05-23 07:15] LABS: IRON 12 ug/dl (35-150)
[2017-05-23 07:25] LABS: % IRON SATURATION 4 % SAT (22-52); TOTAL IRON BINDING CAPACITY 278 ug/dl (241-421)
[2017-05-23] MEDS: predniSONE 20 MG TAB PO (08:31)
[2017-05-23] MEDS: LISINOPRIL 5 MG TAB PO (08:33)
[2017-05-23] MEDS ORDERED: predniSONE 20 MG TAB PO (09:00)
[2017-05-23] MEDS: SILDENAFIL 20 MG TAB PO ×3 (09:16→22:56)
[2017-05-23] MEDS: SOD CHLORIDE 0.9% 1,000 ML IV (13:27)
[2017-05-24] MEDS: PANTOPRAZOLE (EC) 40 MG TAB PO (05:14)
[2017-05-24] MEDS: SOD CHLORIDE 0.9% 1,000 ML IV (05:15)
[2017-05-24] MEDS: predniSONE 20 MG TAB PO (08:26)
[2017-05-24] MEDS: SILDENAFIL 20 MG TAB PO ×3 (08:26→21:10)
[2017-05-24] MEDS: HYDROCODONE/APAP (5/325) TAB PO ×2 (08:26→21:11)
[2017-05-24] MEDS: LISINOPRIL 5 MG TAB PO (08:28)
[2017-05-24 13:43] LABS: ANA SCREEN NEGATIVE (NEGATIVE)
[2017-05-24] MEDS ORDERED: COLCHICINE 0.6 MG TAB PO (16:00)
[2017-05-24] MEDS: FUROSEMIDE 20 MG TAB PO (16:46)
[2017-05-24] MEDS: COLCHICINE 0.6 MG TAB PO (16:46)
[2017-05-24] MEDS: ALLOPURINOL 300 MG TAB PO (16:46)
[2017-05-25] MEDS: HYDROCODONE/APAP (5/325) TAB PO ×3 (04:03→18:46)
[2017-05-25] MEDS: PANTOPRAZOLE (EC) 40 MG TAB PO (06:06)
[2017-05-25 08:12] LABS: BLOOD UREA NITROGEN 44 mg/dl (7-20); CHLORIDE 106 mmol/L (97-110); POTASSIUM 4.2 mmol/L (3.5-5.1); SODIUM 137 mmol/L (135-144)
[2017-05-25 08:38] LABS: ANION GAP 11 (8-16)
[2017-05-25] MEDS: FUROSEMIDE 20 MG TAB PO (08:42)
[2017-05-25 09:04] LABS: CALCIUM 8.7 mg/dl (8.4-10.2); CARBON DIOXIDE 24 mmol/L (21-31); CREATININE 1.34 mg/dl (0.61-1.24); GLUCOSE 123 mg/dl (70-220)
[2017-05-25] MEDS: LISINOPRIL 5 MG TAB PO (09:28)
[2017-05-25] MEDS: COLCHICINE 0.6 MG TAB PO (09:29)
[2017-05-25] MEDS: ALLOPURINOL 300 MG TAB PO (09:29)
[2017-05-25] MEDS: SILDENAFIL 20 MG TAB PO ×3 (09:30→21:13)
[2017-05-26] MEDS: HYDROCODONE/APAP (5/325) TAB PO ×3 (02:00→20:38)
[2017-05-26] MEDS: PANTOPRAZOLE (EC) 40 MG TAB PO (05:32)
[2017-05-26] MEDS: FUROSEMIDE 20 MG TAB PO (05:32)
[2017-05-26] MEDS: COLCHICINE 0.6 MG TAB PO (10:03)
[2017-05-26] MEDS: LISINOPRIL 5 MG TAB PO (10:04)
[2017-05-26] MEDS: ALLOPURINOL 300 MG TAB PO (10:05)
[2017-05-26] MEDS: SILDENAFIL 20 MG TAB PO ×3 (10:05→20:36)
[2017-05-26] MEDS ORDERED: VANCOMYCIN IV PER PHARMACY XX (17:30)
[2017-05-26] MEDS: VANCOMYCIN 1 GM 250 ML IVPB (18:56)
[2017-05-27] MEDS: PANTOPRAZOLE (EC) 40 MG TAB PO (05:36)
[2017-05-27] MEDS: VANCOMYCIN 500MG/NS (PMX) 100 ML IVPB ×2 (05:36→17:43)
[2017-05-27] MEDS: FUROSEMIDE 20 MG TAB PO (05:36)
[2017-05-27 06:24] LABS: ANION GAP 11 (8-16); BLOOD UREA NITROGEN 39 mg/dl (7-20); CALCIUM 8.8 mg/dl (8.4-10.2); CARBON DIOXIDE 29 mmol/L (21-31); CHLORIDE 101 mmol/L (97-110); CREATININE 1.23 mg/dl (0.61-1.24); GLUCOSE 92 mg/dl (70-220); POTASSIUM 4.3 mmol/L (3.5-5.1); SODIUM 137 mmol/L (135-144)
[2017-05-27] MEDS: COLCHICINE 0.6 MG TAB PO (08:42)
[2017-05-27] MEDS: ALLOPURINOL 300 MG TAB PO (08:42)
[2017-05-27] MEDS: LISINOPRIL 5 MG TAB PO (08:43)
[2017-05-27] MEDS: SILDENAFIL 20 MG TAB PO ×3 (08:44→20:47)
[2017-05-27] MEDS: HYDROCODONE/APAP (5/325) TAB PO ×3 (08:48→23:13)
[2017-05-28] MEDS: PANTOPRAZOLE (EC) 40 MG TAB PO (06:19)
[2017-05-28] MEDS: FUROSEMIDE 20 MG TAB PO (06:19)
[2017-05-28 06:57] LABS: BLOOD UREA NITROGEN 42 mg/dl (7-20)
[2017-05-28 06:57] LABS: CREATININE 1.24 mg/dl (0.61-1.24)
[2017-05-28 06:59] LABS: VANCOMYCIN,TROUGH 13.4 ug/ml (10.0-20.0)
[2017-05-28] MEDS: HYDROCODONE/APAP (5/325) TAB PO ×3 (08:00→20:40)
[2017-05-28] MEDS: VANCOMYCIN 500MG/NS (PMX) 100 ML IVPB ×3 (08:12→17:49)
[2017-05-28] MEDS: SILDENAFIL 20 MG TAB PO ×3 (08:21→20:41)
[2017-05-28] MEDS: ALLOPURINOL 300 MG TAB PO (08:22)
[2017-05-28] MEDS: LISINOPRIL 5 MG TAB PO (08:22)
[2017-05-28] MEDS: COLCHICINE 0.6 MG TAB PO (08:22)
[2017-05-29] MEDS: PANTOPRAZOLE (EC) 40 MG TAB PO (05:38)
[2017-05-29] MEDS: FUROSEMIDE 20 MG TAB PO (05:38)
[2017-05-29] MEDS: HYDROCODONE/APAP (5/325) TAB PO ×2 (05:38→13:14)
[2017-05-29] MEDS: VANCOMYCIN 500MG/NS (PMX) 100 ML IVPB ×2 (05:38→17:49)
[2017-05-29] MEDS: COLCHICINE 0.6 MG TAB PO ×3 (08:04→17:49)
[2017-05-29] MEDS: ALLOPURINOL 300 MG TAB PO (08:04)
[2017-05-29] MEDS: LISINOPRIL 5 MG TAB PO (08:04)
[2017-05-29] MEDS: SILDENAFIL 20 MG TAB PO ×3 (08:04→20:49)
[2017-05-29] MEDS: INDOMETHACIN 50 MG PO ×2 (17:49→21:55)
[2017-05-29] MEDS ORDERED: ALLOPURINOL 300 MG TAB PO (21:00)
[2017-05-29] MEDS: ALLOPURINOL 100 MG TAB PO (21:01)
[2017-05-30] MEDS: PANTOPRAZOLE (EC) 40 MG TAB PO (05:11)
[2017-05-30] MEDS: FUROSEMIDE 20 MG TAB PO (05:11)
[2017-05-30] MEDS: VANCOMYCIN 500MG/NS (PMX) 100 ML IVPB (05:11)
[2017-05-30] MEDS: COLCHICINE 0.6 MG TAB PO (09:21)
[2017-05-30] MEDS: ALLOPURINOL 100 MG TAB PO (09:21)
[2017-05-30] MEDS: LISINOPRIL 5 MG TAB PO (09:21)
[2017-05-30] MEDS: INDOMETHACIN 50 MG PO ×2 (09:21→13:21)
[2017-05-30] MEDS: SILDENAFIL 20 MG TAB PO ×2 (09:22→13:21)
== END 2017-05-30 15:28 | disposition hospice, inpatient (51) | DRG 554 ==
LOC: PP2 05-27 11:49 → MS3 05-23 14:24 → E/R 10:50 → MS3 15:12
DX: M10.9 Gout, unspecified (principal); I50.22 Chronic systolic (congestive) heart failure; I27.20 Pulmonary hypertension, unspecified; L03.114 Cellulitis of left upper limb; L03.115 Cellulitis of right lower limb; N18.9 Chronic kidney disease, unspecified; Z59.0 Homelessness; E87.6 Hypokalemia; K29.70 Gastritis, unspecified, without bleeding
CPT/HCPCS: 36415; 71045; 73130-LT; 80048; 80053; 80202; 82565; 82728; 83540; 84520; 84560; 85025; 85610; 85651; 85730; 86038; 86140; 87040; 96374; 97110; 97116; 97162; 97530; 99285-25